=== PATIENT | male | born 1990 | race Caucasian/White ===

== ENCOUNTER 2021-05-17 14:25 | Emergency (ER) | payer MEDICAID, SELFPAY ==
--- NOTE | ~2021-05-17 | US_ITS ---
EXAMINATION: ULTRASOUND EXTREMITY NONVASCULAR CLINICAL INFORMATION: Question of foreign body in the hand. COMPARISON: None TECHNIQUE: Targeted sonographic evaluation in the region of concern of the left hand fifth digit. FINDINGS: There is no focal abnormality identified. No foreign body seen. US/US extremity nonvascular IMPRESSION: No foreign body identified in the region of concern.
--- NOTE | ~2021-05-17 | XR_ITS ---
EXAMINATION: LEFT HAND CLINICAL INFORMATION: Rule out foreign body. Laceration with glass. COMPARISON: None TECHNIQUE: 3 views of the left hand as well as navicular view of the wrist FINDINGS: There is no evidence of acute fracture or dislocation of the left hand. There is a large amount of soft tissue swelling seen about the dorsal ulnar aspect of the metacarpals no bony erosion identified. No gas within the soft tissues. No radiopaque foreign body. There appears to be a small soft tissue defect about the dorsal ulnar aspect of the fifth metacarpal phalangeal joint which may represent a laceration. Joint spaces maintained. XR/XR hand wrist LT IMPRESSION: No radiopaque foreign body identified. Large amount of soft tissue swelling.
[2021-05-17 14:38] VITALS: BP 127/77; PULSE 102; RESP 17; TEMP 36.8; O2SAT 98; BMI 18.6
[2021-05-17] MEDS: Ibuprofen 600 MG TABLET PO (14:45)
[2021-05-17 16:33] VITALS: BP 126/98; PULSE 120; RESP 18; TEMP 36.7; O2SAT 99
[2021-05-17] MEDS: oxyCODONE HCl Immed Release 5 MG TABLET PO (16:38)
[2021-05-17] MEDS: LORazepam 1 MG TABLET PO (16:38)
[2021-05-17] MEDS: Diphth,Pertus(ACell),Tet Adult 0.5 ML SYRINGE IM (16:39)
[2021-05-17] MEDS: 0.9 % Sodium Chloride 1,000 ML 999 ML IVCONT (17:03)
[2021-05-17 17:08] LABS: MANUAL DIFF FLAG NO
[2021-05-17 17:16] LABS: INTERNATIONAL NORM RATIO 1.1 (0.9-1.1); Prothrombin Time 12.2 SEC (9.9-13.0)
[2021-05-17 17:21] LABS: Basophils Percent Auto 0.4 % (0-2); Eosinophils Absolute Auto 0.1 X10*3/uL (0.0-0.4); Eosinophils Percent Auto 1.1 % (0-4); Hematocrit 45.3 % (42.0-52.0); Hemoglobin 15.5 g/dl (14.0-18.0); Imm Gran Abs Auto 0.02 X10*3/uL (0.00-0.03); Imm Gran Pct Auto 0.3 % (0.0-0.4); Lymphocytes Absolute Auto 1.5 X10*3/uL (1.2-4.9); Lymphocytes Percent Auto 20.7 % (20-40); Mean Corpuscular HGB Conc 34.2 g/dl (31.0-36.0); Mean Corpuscular Hemoglobin 32.4 pg (27.0-33.0); Mean Corpuscular Volume 94.6 fL (80.0-98.0); Mean Platelet Volume 8.8 fL (9.4-12.4); Monocytes Absolute Auto 0.6 X10*3/uL (0.1-1.2); Monocytes Percent Auto 8.9 % (2-11); Neutrophils Absolute Auto 4.9 x10*3/uL (2.0-8.3); Neutrophils Percent Auto 68.6 % (45-73); Platelet Count 325 X10*3/uL (160-400); Red Blood Count 4.79 X10*6/uL (4.60-5.80); Red Cell Distribution Width 12.2 % (11.0-16.0); White Blood Count 7.1 X10*3/uL (4.8-10.8)
--- NOTE | 2021-05-17 17:24 | PC.NURSE ---
US PERFORMED AT BEDSIDE
[2021-05-17 17:33] LABS: COVID-19 Test Negative (Negative)
--- NOTE | 2021-05-17 17:33 | ED.WOUNDLAC ---
HPI - Wound/Laceration General Chief Complaint: Wound/Laceration Stated Complaint: laceration on left hand Time Seen by Provider: 05/17/21 15:25 Source: patient and family (Mother) Mode of arrival: ambulatory Limitations: no limitations History of Present Illness HPI narrative: 31-year-old male presenting to the ED with complaints of a laceration to his left hand that occurred approximately 1 week ago while he was in the shower he sustained a laceration with the glass shower door. He reports that since then the pain/swelling/redness has increased and he is unsure if he has a foreign body in there. He reports that he is not sure if he is up-to-date on tetanus. He denies any fevers, chills, paresthesias, numbness/tingling, chest pain or shortness of breath, dyspnea on exertion, orthopnea, palpitations or any other symptoms complaints or concerns at this time. Denies any SI/HI/auditory visual hallucinations or thoughts of self-injury. Reports that this was accidental. Onset (ago): week(s) (1) Extremity Location: left: hand Place: home Patient tetanus UTD: No Context: accidental Associated symptoms: pain, suspect foreign body present and unable to move injured part Related Data Previous Rx's Medication Instructions Recorded cephalexin 500 mg capsule 500 mg PO Q6H 10 Days #40 cap 05/17/21 doxycycline monohydrate 100 mg 100 mg PO BID 10 Days #20 cap 05/17/21 capsule ibuprofen 800 mg tablet 800 mg PO Q8H PRN #14 tab 05/17/21 oxycodone 5 mg tablet 5 mg PO Q6H PRN #14 tab 05/17/21 Allergies Allergy/AdvReac Type Severity Reaction Status Date / Time Sulfa (Sulfonamide Allergy Unknown HIVES Verified 05/17/21 14:38 Antibiotics) [SULFA (SULFONAMIDE ANTIBIOTICS)] Review of Systems Review of Systems: Constitutional : No Fever, No Chills, Cardiovascular : No Chest Pain, No SOB Respiratory : No Dyspnea Gastrointestinal : No abdominal pain Musculoskeletal : No Joint Swelling Skin : + skin laceration, + possibly Foreign bodies, + surrounding erythema, No rash Neuro : No Weakness, No Numbness/tingling Psych : No SI/HI/thoughts of self injury Yes all other systems are reviewed and are negative PMFSH Past Medical History Attestation statement: The following information was validated with the patient. Medical History (Updated 05/17/21 @ 17:46 by MUSHTAQ Shankar) ADHD Anxiety Depression HIV disease Panic attacks Social History Social History Advance Directives: No Advance Directives Information Provided: No Physical Exam Vital Signs: Vital Signs: Last Vital Signs Temp 98.0 F 05/17/21 16:33 Pulse 120 H 05/17/21 16:33 Resp 18 05/17/21 16:33 BP 126/98 H 05/17/21 16:33 Pulse Ox 99 05/17/21 16:33 Body Mass Index 18.6 vital signs have been reviewed as normal and appeared to be correct. Blood pressure normal Heart rate normal. Respiration rate normal. Temperature normal. Oxygen saturation normal. Appearance: Alert. Oriented X3. No acute distress. Head: Normal external exam. Normocephalic. Atraumatic. Eyes: PERRLA. EOMI. Conjunctiva and sclera normal. Eyelids normal. ENT: Pharynx normal. Uvula midline. Moist mucous membranes. Neck: Normal inspection. Neck supple. FROM. CVS: Normal heart rate and rhythm. Respiratory: No respiratory distress. Painless inspiration. Skin: Skin warm and dry. Normal skin color. Normal skin turgor. To the left hand dorsal aspect at the 5th metacarpal dorsal aspect patient what appears like a puncture wound with moderate surrounding erythema and soft tissue swelling and tenderness palpation. He is unable to completely flex the 5th digit due to pain on the dorsal aspect although he does not have any pain on the palmar aspect and is not consistent with tenosynovitis. He has full range of motion of all other fingers. He keeps his left 5th digit in a flexion due to pain on the dorsal aspect no pain on the palmar aspect. Otherwise No additional rashes/lesions/lacerations noted. Extremities: Otherwise all other Extremities exhibit normal range of motion and nontender. Neuro: Oriented X 3. No motor deficit. No sensory deficit. Reflexes normal. Normal steady gait. No focal neuro deficits noted. Vascular: + radial pulses/+ 2 distal pedal pulses/+2 dorsalis pedis b/l. Normal cap refill. No cyanosis noted to upper extremity nails and lower extremity toes nails. Course Course Course Narrative: 16:20pm - 31-year-old male presenting to the ED with complaints of a laceration to his left hand that occurred approximately 1 week ago while he was in the shower he sustained a laceration with the glass shower door. He reports that since then the pain/swelling/redness has increased and he is unsure if he has a foreign body in there. He reports that he is not sure if he is up-to-date on tetanus. He denies any fevers, chills, paresthesias, numbness/tingling, chest pain or shortness of breath, dyspnea on exertion, orthopnea, palpitations or any other symptoms complaints or concerns at this time. Denies any SI/HI/auditory visual hallucinations or thoughts of self-injury. Reports that this was accidental. On exam patient To the left hand dorsal aspect at the 5th metacarpal dorsal aspect patient what appears like a puncture wound with moderate surrounding erythema and soft tissue swelling and tenderness palpation. He is unable to completely flex the 5th digit due to pain on the dorsal aspect although he does not have any pain on the palmar aspect and is not consistent with tenosynovitis. He has full range of motion of all other fingers. He keeps his left 5th digit in a flexion due to pain on the dorsal aspect no pain on the palmar aspect. Therefore I consulted with orthopedic hand surgeon Dr. Bosch and she reviewed the patient's x-ray report and recommended an ultrasound to evaluate for possible foreign bodies if they could not see on the x-ray along with a dose of IV antibiotic she also recommended admission although patient is very adamant that he cannot be admitted because he has to take care of his dog his mother tried to convince him that she can take care of the dog with the patient is having an anxiety/panic attack and almost crying reporting that he cannot stay here he needs to go home to take care of his dog he does not want his mother anyone else in care of his dog. Therefore explained to him that we should at least do the ultrasound the blood work and give him at least 1 dose of IV antibiotics and that he would need to leave against medical advice although I will give him doxycycline and Keflex for 14 days along with symptomatic treatment and instructions to follow-up with Dr. Bosch the hand surgeon and he understands and is agreeable to this plan. MDM - Wound/Laceration Medical Records Attestation: I reviewed the patient's medical records. Lab Data Result diagrams: 05/17/21 16:58 05/17/21 16:58 Labs: Lab Results 05/17/21 05/17/21 05/17/21 Range/Units 16:57 16:58 16:58 WBC 7.1 (4.8-10.8) X10*3/uL RBC 4.79 (4.60-5.80) X10*6/uL Hgb 15.5 (14.0-18.0) g/dl Hct 45.3 (42.0-52.0) % MCV 94.6 (80.0-98.0) fL MCH 32.4 (27.0-33.0) pg MCHC 34.2 (31.0-36.0) g/dl RDW 12.2 (11.0-16.0) % Plt Count 325 (160-400) X10*3/uL MPV 8.8 L (9.4-12.4) fL Immature Gran % (Auto) 0.3 (0.0-0.4) % Neut % (Auto) 68.6 (45-73) % Lymph % (Auto) 20.7 (20-40) % [place] % (Auto) 8.9 (2-11) % Eos % (Auto) 1.1 (0-4) % Baso % (Auto) 0.4 (0-2) % Lymph # (Auto) 1.5 (1.2-4.9) X10*3/uL [place] # (Auto) 0.6 (0.1-1.2) X10*3/uL Eos # (Auto) 0.1 (0.0-0.4) X10*3/uL Baso # (Auto) 0.0 (0.0-0.2) X10*3/uL Abs Immat Gran (auto) 0.02 (0.00-0.03) X10*3/uL Absolute Neuts (auto) 4.9 (2.0-8.3) x10*3/uL Absolute Nucleated RBC 0.000 (0.0-0.012) X10*3/uL Nucleated RBC % (auto) 0.0 (0.0-0.2) /100WBC PT 12.2 (9.9-13.0) SEC INR 1.1 (0.9-1.1) Lactic Acid 1.0 (0.5-2.0) mmol/L Imaging Data Extremity ultrasound: Attestation: I personally reviewed and interpreted this imaging study as follows: Radiologist's impression: FINDINGS: There is no focal abnormality identified. No foreign body seen.? US/US extremity nonvascular IMPRESSION: No foreign body identified in the region of concern.? Left hand/wrist x-ray: Attestation: I personally reviewed and interpreted this imaging study as follows: Radiologist's impression: FINDINGS: There is no evidence of acute fracture or dislocation of the left hand. There is a large amount of soft tissue swelling seen about the dorsal ulnar aspect of the metacarpals no bony erosion identified. No gas within the soft tissues. No radiopaque foreign body. There appears to be a small soft tissue defect about the dorsal ulnar aspect of the fifth metacarpal phalangeal joint which may represent a laceration. Joint spaces maintained. XR/XR hand wrist LT IMPRESSION: No radiopaque foreign body identified. ? Large amount of soft tissue swelling.? Critical Care Time Critical Care Time Critical Care Time: Yes Total Critical Care Time: 60 Attestation: I personally attest to this time spent taking care of the patient Discharge Plan Discharge Clinical Impression: Laceration, Cellulitis, Left against medical advice Patient Disposition: Left Against Medical Advice Instructions: Cellulitis (ED), Laceration Without Closure (ED), Warm Compress or Soak (ED), Against Medical Advice (ED) Prescriptions: New cephalexin 500 mg capsule 500 mg PO Q6H 10 Days Qty: 40 RF: 0 doxycycline monohydrate 100 mg capsule 100 mg PO BID 10 Days Qty: 20 RF: 0 oxycodone 5 mg tablet 5 mg PO Q6H PRN (Reason: pain) Qty: 14 RF: 0 ibuprofen 800 mg tablet 800 mg PO Q8H PRN (Reason: pain) Qty: 14 RF: 0 Referrals: Cindy Thomas MD [Physician] - 05/20/21 (Call Thursday to make an appointment next week) Stand Alone Forms: Work/School Release Print Language: Spanish
[2021-05-17 17:38] LABS: Alanine Aminotransferase 18 U/L (0-40); Albumin Level 4.6 g/dL (3.5-5.0); Alkaline Phosphatase 68 U/L (39-117); Anion Gap 15 (12-20); Aspartate Amino Transferase 15 U/L (5-37); Bilirubin Total 0.5 mg/dL (0.0-1.0); Blood Urea Nitrogen 13 mg/dL (9-16); C Reactive Protein 0.37 mg/dL (< or = 0.50); Calcium 9.6 mg/dL (8.4-10.2); Carbon Dioxide 24 mmol/L (22-29); Chloride 104 mmol/L (96-108); Creatinine Clr Calc Pharmacy 92.4; Estimated Glomerular Filt Rate > 60; Glucose Random 95 mg/dL (60-115); Potassium 3.7 mmol/L (3.3-5.1); Sodium 139 mmol/L (135-145); Total Protein 7.8 g/dL (6.5-8.0)
--- NOTE | 2021-05-17 18:03 | PC.NURSE ---
PT UNABLE TO GET COVERAGE TO WATCH ANIMAL AT HOME AND WILL NOT STAY AND IS LEAVING AMA MUSHTAQ CHAVIRA AWARE AND SPOKE WITH PT AND SPOKE WITH ORTHO PT WILL GO HOME ON ANTIBIOTIC THERAPY AND F/U ON THURSDAY WITH ORTHO.
[2021-05-17 18:24] LABS: Erythrocyte Sedimentation Rate 9 MM/HR (0-15)
== END 2021-05-17 18:07 | disposition left against medical advice (07) ==
PROVIDERS: Physician Assistant Medical; Emergency Provider Emergency Medicine Emergency Medical Services
DX: S61.412A Laceration without foreign body of left hand, initial encounter (principal); L03.114 Cellulitis of left upper limb; B20 Human immunodeficiency virus [HIV] disease; W25.XXXA Contact with sharp glass, initial encounter; Y93.E1 Activity, personal bathing and showering; Y92.002 Bathroom of unspecified non-institutional (private) residence as the place of occurrence of the external cause; Y99.9 Unspecified external cause status; Z20.822 Contact with and (suspected) exposure to COVID-19
CPT/HCPCS: 36415; 73110; 73130; 76882; 80053; 83605; 85025; 85610; 85652; 86140; 87040; 87635; 90471; 90715; 96360; 99284; 99291

== ENCOUNTER 2021-05-28 09:26 | Outpatient (REF) | payer MEDICAID, SELFPAY ==
--- NOTE | ~2021-05-28 | XR_ITS ---
EXAMINATION: XR HAND, LEFT CLINICAL INFORMATION: Left hand pain. COMPARISON: 05/17/2021 TECHNIQUE: PA, lateral, and oblique views of the left hand. FINDINGS: There is mild soft tissue swelling at the dorsal/medial aspect of the left hand. No fracture or malalignment. Bone mineralization is normal. No radiodense foreign bodies. Joint spaces are well preserved. No erosions. XR/XR hand LT min 3V IMPRESSION: Mild soft tissue swelling at the medial/dorsal aspect of the hand. No acute osseous findings. No radiodense foreign bodies.
== END 2021-05-28 09:27 | disposition home or self-care (01) ==
LOC: HO.HOSX 09:26
PROVIDERS: Visit Provider Orthopaedic Surgery
DX: M79.642 Pain in left hand (principal); S61.412A Laceration without foreign body of left hand, initial encounter; S66.822A Laceration of other specified muscles, fascia and tendons at wrist and hand level, left hand, initial encounter
CPT/HCPCS: 73130; 99202

== ENCOUNTER → 2021-06-12 12:12 | Outpatient (BNVA) | payer MEDICAID, SELFPAY | PROVIDERS: Visit Provider Orthopaedic Surgery | DX: S61.412D Laceration without foreign body of left hand, subsequent encounter (principal); S66.822D Laceration of other specified muscles, fascia and tendons at wrist and hand level, left hand, subsequent encounter; M25.642 Stiffness of left hand, not elsewhere classified | CPT/HCPCS: 99212 ==

== ENCOUNTER 2024-05-21 03:45 | Inpatient (IN) | payer MEDICAID, SELFPAY ==
[2024-05-21] VITALS (7 sets, daily range): BP systolic 113–139; BP diastolic 74–96; PULSE 57–82; RESP 15–20; TEMP 36.6–37.1; O2SAT 94–99; BMI 18.6
--- NOTE | ~2024-05-21 | CT_ITS ---
EXAMINATION: CT ABDOMEN AND PELVIS WITH CONTRAST CLINICAL INFORMATION: Abdominal pain. Leukocytosis. COMPARISON: None available. TECHNIQUE: Multidetector volumetric images were obtained from the superior aspect of the liver through the pubic symphysis following administration 85 mL of Omnipaque 350 intravenous contrast. Sagittal and coronal reformatted images were obtained on the technologist's workstation. Oral contrast: No This CT examination was performed using dose optimization techniques as appropriate, variously including the following: *Automated exposure control *Adjustment of mA and/or kV according to patient size (this includes techniques or standardized protocols for targeted exams where dose is matched to indication/reason for exam; i.e. extremities or head) *Use of iterative reconstruction technique DLP: 334 mGy-cm FINDINGS: LUNG BASES: The visualized lung bases are unremarkable. LIVER, GALLBLADDER, AND BILIARY TREE: The liver is normal in size, shape, and attenuation. No focal hepatic lesion or biliary ductal dilatation is present. Distended gallbladder with multiple layering stones and sludge. Gallbladder wall thickening and enhancement with pericholecystic free fluid. Findings are consistent with acute cholecystitis. PANCREAS: Unremarkable. SPLEEN: Unremarkable. ADRENAL GLANDS: Unremarkable. KIDNEYS AND URETERS: The kidneys are normal in size, shape, and attenuation. No hydronephrosis, hydroureter, or calculi seen. No perinephric stranding. BLADDER: Unremarkable. GASTROINTESTINAL TRACT: No small- or large-bowel obstruction. Moderate stool within the colon. No bowel wall thickening or inflammatory change. Unremarkable appendix. PERITONEAL CAVITY: No intra-abdominal free air or free fluid. ABDOMINAL WALL: No significant hernia is appreciated. LYMPH NODES: No significant lymphadenopathy. VASCULAR: Unremarkable. PELVIC VISCERA: The prostate and seminal vesicles are unremarkable. OSSEOUS STRUCTURES: Unremarkable. CT/CT abdomen pelvis w IV con IMPRESSION: 1. Distended gallbladder with multiple layering stones and sludge. Gallbladder wall thickening and enhancement with pericholecystic free fluid. Findings are consistent with acute cholecystitis. 2. Moderate stool throughout the colon, which could indicate a degree of constipation. No small- or large-bowel obstruction. No bowel wall thickening or inflammatory change. Unremarkable appendix. 3. No intra-abdominal mass, lymphadenopathy, or ascites. Fleischner guidelines were followed. Electronically signed by: Alex Ren MD 05/21/2024 08:48 AM [facility] [place]
[2024-05-21 04:17] LABS: MANUAL DIFF FLAG NO
[2024-05-21 04:18] LABS: Basophils Percent Auto 0.2 % (0-2); Eosinophils Absolute Auto 0.1 X10*3/uL (0.0-0.4); Eosinophils Percent Auto 0.4 % (0-4); Hematocrit 38.9 % (42.0-52.0); Hemoglobin 13.2 g/dl (14.0-18.0); Imm Gran Abs Auto 0.07 X10*3/uL (0.00-0.03); Imm Gran Pct Auto 0.4 % (0.0-0.4); Lymphocytes Percent Auto 11.8 % (20-40); Mean Corpuscular HGB Conc 33.9 g/dl (31.0-36.0); Mean Corpuscular Volume 94.4 fL (80.0-98.0); Mean Platelet Volume 8.9 fL (9.4-12.4); Monocytes Percent Auto 5.8 % (2-11); Neutrophils Absolute Auto 13.6 x10*3/uL (2.0-8.3); Neutrophils Percent Auto 81.4 % (45-73); Platelet Count 321 X10*3/uL (160-400); Red Blood Count 4.12 X10*6/uL (4.60-5.80); Red Cell Distribution Width 14.6 % (11.0-16.0); White Blood Count 16.7 X10*3/uL (4.8-10.8)
[2024-05-21 04:36] LABS: Alanine Aminotransferase 17 U/L (0-40); Albumin Level 4.2 g/dL (3.5-5.0); Alkaline Phosphatase 55 U/L (39-117); Anion Gap 14 (12-20); Aspartate Amino Transferase 19 U/L (5-37); Bilirubin Direct 0.1 mg/dL (0.0-0.5); Bilirubin Total 0.5 mg/dL (0.0-1.0); Blood Urea Nitrogen 9 mg/dL (9-16); Calcium 9.5 mg/dL (8.4-10.2); Carbon Dioxide 25 mmol/L (22-29); Chloride 103 mmol/L (96-108); Creatinine Clr Calc Pharmacy 98.8; Estimated Glomerular Filt Rate > 60; Glucose Random 108 mg/dL (60-115); Lipase 13 U/L (8-78); Potassium 3.6 mmol/L (3.3-5.1); Sodium 138 mmol/L (135-145); Total Protein 7.5 g/dL (6.5-8.0)
[2024-05-21 06:06] LABS: Appearance Urine Clear; Color Urine Yellow; Glucose Urine UA Negative (Negative); Leukocyte Esterase Urine Negative (Negative); Nitrite Urine Negative (Negative); PH 6.5 (5.0-9.0); Urine Blood Negative (Negative); Urine Ketones Negative (Negative); Urine Protein Negative (Neg-Trace)
--- NOTE | 2024-05-21 07:05 | ED_ITS ---
HPI - General Adult General Chief complaint: Abdominal Pain Stated complaint: upper abd pain Time Seen by Provider: 05/21/24 06:44 Source: patient Mode of arrival: ambulatory Limitations: no limitations History of Present Illness ED Provider: MUSHTAQ Llamas HPI narrative: A 34-year-old male history of anxiety, depression, HIV on maintenance meds ( unknown last CD4) presenting to the emergency department with complaints of epigastric and right upper quadrant abdominal pain ongoing for the past few days, it got worse yesterday night at approximately 22:00 this is the last time she ate. He reports pain is constant and severe. He denies history of abdominal surgeries. He has no appetite. Nothing seems to make this pain better. Denies fevers, chills, nausea, vomiting, diarrhea, chest pain, shortness of breath. Related Data Previous Rx's ?Medication ?Instructions ?Recorded cephalexin 500 mg capsule 500 mg PO Q6H 10 days #40 caps 05/17/21 doxycycline monohydrate 100 mg 100 mg PO BID 10 days #20 caps 05/17/21 capsule ibuprofen 800 mg tablet 800 mg PO Q8H PRN pain #14 tabs 05/17/21 oxycodone 5 mg tablet 5 mg PO Q6H PRN pain #14 tabs 05/17/21 Allergies Allergy/AdvReac Type Severity Reaction Status Date / Time Sulfa (Sulfonamide Allergy Unknown HIVES Verified 05/21/24 03:54 Antibiotics) [SULFA (SULFONAMIDE ANTIBIOTICS)] Review of Systems 2 Review of Systems: Yes all other systems are reviewed and are negative PMFSH Past Medical History Attestation statement: The following information was validated with the patient. Source: old records reviewed and nursing notes reviewed Medical History Depression ADHD HIV disease Panic attacks Anxiety Social History Social History Alcohol intake: current Alcohol intake frequency: holidays/special occasions only Smoked in Last 30 Days: Yes Use of substances other than those prescribed or required for medical reasons: Yes Substance Use Type: Marijuana Substance Use Frequency: Occasionally Advance Directives: No Advance Directives Information Provided: Yes Do you have a plan to hurt others: No Plan Current occupational status: unemployed Current occupation: rt hand Physical Exam ED Vital Signs: Vital Signs - 24 hr 05/21/24 03:52 05/21/24 05:56 05/21/24 07:33 Temperature 98 F 98.7 F 98.4 F Pulse Rate 82 68 74 Respiratory Rate 20 18 15 Blood Pressure 139/96 H 125/81 122/74 Pulse Oximetry 97 99 94 Oxygen Delivery Method Room Air Room Air Room Air BMI result Body Mass Index 18.6 vss Appearance: Alert.? Oriented X3.? No acute distress.? Head: Normocephalic, atraumatic, no step-offs or deformities Eyes: Pupils equal, round and reactive to light.?? Neck: Normal inspection.? Neck supple.? CVS: Normal heart rate and rhythm.? Pulses normal.? Respiratory: No respiratory distress.? Breath sounds normal.? Abdomen: Soft and Epigastric and RUQ pain .?+ murphys Skin: Skin warm and dry.? Normal skin color.? Normal skin turgor.? Extremities: No lower extremity edema.? No calf ttp. 5/5 strength to bilateral upper and lower extremities Neuro: Oriented X 3.? No motor deficit.? No sensory deficit. CN 2-12 intact Course Reevaluation(s) Reevaluation #1: Patient's CBC with leukocytosis and left shift this could be reactive or from viral illness. Chemistry with no acute findings needing intervention. Time: 07:30 Reevaluation #2: Patient's CT scan showing distended gallbladder with multiple layering stones and sludge gallbladder wall thickening and enhancement with pericholecystic free fluid consistent with acute cholecystitis. Will reach out to surgery as patient will likely need laparoscopic cholecystectomy. Time: 09:01 Medications Administered Discontinued Medications Generic Name Dose Route Start Last Admin Trade Name Lucasq PRN Reason Stop Dose Admin Iohexol 100 ml 05/21/24 07:59 05/21/24 07:59 Iohexol 350 Mg/Ml 100 Ml Infus..Btl IV 05/21/24 08:00 85 ml ONCE ONE Administration Ketorolac Tromethamine 15 mg 05/21/24 07:05 05/21/24 08:00 Ketorolac Tromethamine 15 Mg/Ml Vial IVPUSH 05/21/24 07:06 15 mg ONCE ONE Administration Medical Decision Making Medical Decision Making [facility] Narrative: [id number] 34-year-old male presents with epigastric/right upper quadrant pain ongoing for the past few days acutely worsening last night. No appetite. Physical exam significant discomfort in the epigastric and the right upper quadrant. Positive Wong sign. Negative McBurney's. History and physical exam concerning for viral illness versus cholecystitis versus appendicitis. Unlikely acute abdomen, obstruction, kidney stone. Will rule out metabolic derangements Plan labs, imaging, urine Differential Diagnosis Differential Diagnoses: The differential diagnosis associated with the presentation includes (story and physical exam concerning for viral illness versus cholecystitis versus appendicitis. Unlikely acute abdomen, obstruction, kidney stone. Will rule out metabolic derangements) Admission/Observation Consideration of admission/observation: Escalation of care including admission/observation considered Lab Data MDM Lab Attestation statement: I reviewed the patient's lab results. 05/21/24 04:13 05/21/24 04:13 Labs: Lab Results 05/21/24 05/21/24 Range/Units 04:13 05:59 WBC 16.7 H (4.8-10.8) X10*3/uL RBC 4.12 L (4.60-5.80) X10*6/uL Hgb 13.2 L (14.0-18.0) g/dl Hct 38.9 L (42.0-52.0) % MCV 94.4 (80.0-98.0) fL MCH 32.0 (27.0-33.0) pg MCHC 33.9 (31.0-36.0) g/dl RDW 14.6 (11.0-16.0) % Plt Count 321 (160-400) X10*3/uL MPV 8.9 L (9.4-12.4) fL Immature Gran % (Auto) 0.4 (0.0-0.4) % Neut % (Auto) 81.4 H (45-73) % Lymph % (Auto) 11.8 L (20-40) % [place] % (Auto) 5.8 (2-11) % Eos % (Auto) 0.4 (0-4) % Baso % (Auto) 0.2 (0-2) % Lymph # (Auto) 2.0 (1.2-4.9) X10*3/uL [place] # (Auto) 1.0 (0.1-1.2) X10*3/uL Eos # (Auto) 0.1 (0.0-0.4) X10*3/uL Baso # (Auto) 0.0 (0.0-0.2) X10*3/uL Abs Immat Gran (auto) 0.07 H (0.00-0.03) X10*3/uL Absolute Neuts (auto) 13.6 H (2.0-8.3) x10*3/uL Absolute Nucleated RBC 0.000 (0.0-0.012) X10*3/uL Nucleated RBC % (auto) 0.0 (0.0-0.2) /100WBC Sodium 138 (135-145) mmol/L Potassium 3.6 (3.3-5.1) mmol/L Chloride 103 (96-108) mmol/L Carbon Dioxide 25 (22-29) mmol/L Anion Gap 14 (12-20) BUN 9 (9-16) mg/dL Creatinine 0.71 (0.5-1.4) mg/dL Estim Creat Clear Calc 98.8 Estimated GFR > 60 Random Glucose 108 (60-115) mg/dL Calcium 9.5 (8.4-10.2) mg/dL Total Bilirubin 0.5 (0.0-1.0) mg/dL Direct Bilirubin 0.1 (0.0-0.5) mg/dL AST 19 (5-37) U/L ALT 17 (0-40) U/L Alkaline Phosphatase 55 (39-117) U/L Total Protein 7.5 (6.5-8.0) g/dL Albumin 4.2 (3.5-5.0) g/dL Lipase 13 (8-78) U/L Urine Color Yellow Urine Appearance Clear Urine pH 6.5 (5.0-9.0) Ur Specific [place] 1.010 (1.005-1.025) Urine Protein Negative (Neg-Trace) mg/dL Urine Glucose (UA) Negative (Negative) mg/dL Urine Ketones Negative (Negative) mg/dL Urine Blood Negative (Negative) Urine Nitrite Negative (Negative) Ur Leukocyte Esterase Negative (Negative) Independent Interpretation I performed an independent interpretation of an: CT Scan Radiology Impression Discussion of test interpretation with radiology: I have reviewed the radiologist's reading. Chronic Conditions Patient?s care impacted by: Other (anxiety, depression, hiv) Critical Care Time Critical Care Time Critical Care Time: Yes Total Critical Care Time: 35 Attestation: I attest to this time spent taking care of the patient, obtaining history, physical, reviewing labs, imaging, treatment of patients condition +/- specialist/hospitalist consult Discharge Plan Discharge Clinical Impression: Acute cholecystitis Patient Disposition: Admitted As Inpatient Prescriptions: No Action cephalexin 500 mg capsule 500 mg PO Q6H 10 Days Qty: 40 0RF doxycycline monohydrate 100 mg capsule 100 mg PO BID 10 Days Qty: 20 0RF oxycodone 5 mg tablet 5 mg PO Q6H PRN (Reason: pain) Qty: 14 0RF ibuprofen 800 mg tablet 800 mg PO Q8H PRN (Reason: pain) Qty: 14 0RF Print Language: Bulgarian
[2024-05-21] MEDS: iohexoL 350 MG/ML 100 ML INFUS..BTL IV (07:59)
[2024-05-21] MEDS: Ketorolac Tromethamine 15 MG/ML VIAL IVPUSH (08:00)
[2024-05-21] MEDS: cefTRIAXone sodium 1 GM VIAL IVPUSH (09:40)
[2024-05-21 09:59] LABS: Lactic Acid 1.5 mmol/L (0.5-2.0)
--- NOTE | 2024-05-21 10:47 | PM.HPGS ---
History of Present Illness History of Present Illness Date of Service: 05/24/24 Chief complaint: acute cholecystitis Narrative: Josef Fam is a 34 year old male known HIV infection, here in the ER because of abdominal pain. He says that this is mostly in the epigastric area and maybe on the right upper quadrant. He says that this started 3 morning. This had persisted throughout the day so he went to the emergency room last night. He did state that he was waiting in the emergency room waiting room for a long time. He denies any nausea or vomiting He says his pain is ?gone? at this time but did get a dose of Toradol earlier here in the ER. He has a history of anxiety and depression as well and used to see a psychiatrist in the past. He seems to have had uncertain follow up with his IV doctor with regards to treatment. Review of Systems Review of Systems: Very anxious Constitutional: Constitutional: Denies chills and Denies fever(s) Cardiovascular: Cardiovascular: Denies chest pain, Denies dyspnea and Denies dyspnea on exertion Respiratory: Respiratory: Denies cough, Denies dyspnea and Denies dyspnea on exertion Gastrointestinal: Gastrointestinal: Denies hematochezia and Denies change in bowel habits Genitourinary: Genitourinary: Denies hematuria and Denies difficulty urinating Musculoskeletal: Musculoskeletal: Denies back pain and Denies limited range of motion Neurologic: Denies focal weakness and Denies convulsions Psychiatric: Psychiatric: Denies depression and Denies mood swings PMFSH Past Medical History Medical History Depression ADHD HIV disease Panic attacks Anxiety Social History Social History Alcohol intake: current Alcohol intake frequency: holidays/special occasions only Smoked in Last 30 Days: Yes Use of substances other than those prescribed or required for medical reasons: Yes Substance Use Type: Marijuana Substance Use Frequency: Occasionally Advance Directives: No Advance Directives Information Provided: Yes Do you have a plan to hurt others: No Plan Current occupational status: unemployed Current occupation: rt hand Meds Allergies Allergy/AdvReac Type Severity Reaction Status Date / Time Sulfa (Sulfonamide Allergy Unknown HIVES Verified 05/21/24 03:54 Antibiotics) [SULFA (SULFONAMIDE ANTIBIOTICS)] Home Medications ?Medication ?Instructions ?Recorded ?Confirmed ?Last Taken ?Type bictegravir 50 mg-emtricitabine 1 tab PO DAILY 05/21/24 Unknown History 200 mg-tenofovir alafenam 25 mg tablet (Biktarvy) Physical Exam Vital Signs: Vital Signs: Last Vital Signs Temp 98.4 F 05/21/24 07:33 Pulse 57 05/21/24 09:44 Resp 16 05/21/24 09:44 BP 115/80 05/21/24 09:44 Pulse Ox 95 05/21/24 09:44 O2 Del Method Room Air 05/21/24 07:33 BMI result Body Mass Index 18.6 Const: General: comfortable and no acute distress Orientation/consciousness: patient oriented x3 Neck: Neck: Yes no lymphadenopathy Resp: Auscultation: clear to auscultation bilaterally Cardio: Rhythm: regular rhythm GI: Other: Currently no Wong's sign or tenderness Palpation (GI): Soft to palpation, nontender and no guarding Neuro: General: patient oriented x3 Results Results Labs: Short CBC 05/21/24 Range/Units 04:13 WBC 16.7 H (4.8-10.8) X10*3/uL Hgb 13.2 L (14.0-18.0) g/dl Hct 38.9 L (42.0-52.0) % Plt Count 321 (160-400) X10*3/uL BMP 05/21/24 04:13 Sodium 138 Potassium 3.6 Chloride 103 Carbon Dioxide 25 BUN 9 Creatinine 0.71 Calcium 9.5 Liver Function 05/21/24 Range/Units 04:13 Total Bilirubin 0.5 (0.0-1.0) mg/dL Direct Bilirubin 0.1 (0.0-0.5) mg/dL AST 19 (5-37) U/L ALT 17 (0-40) U/L Alkaline Phosphatase 55 (39-117) U/L Albumin 4.2 (3.5-5.0) g/dL Urine 05/21/24 Range/Units 05:59 Urine Color Yellow Urine Appearance Clear Urine pH 6.5 (5.0-9.0) Ur Specific [place] 1.010 (1.005-1.025) Urine Protein Negative (Neg-Trace) mg/dL Urine Glucose (UA) Negative (Negative) mg/dL Abdomen CT scan report/results: report reviewed and image reviewed CT scan - pelvis: report reviewed and image reviewed Additional studies: Laboratory Results WBC 16.7 X10*3/uL (4.8-10.8) H 05/21/24 04:13 RBC 4.12 X10*6/uL (4.60-5.80) L 05/21/24 04:13 Hgb 13.2 g/dl (14.0-18.0) L 05/21/24 04:13 Hct 38.9 % (42.0-52.0) L 05/21/24 04:13 MCV 94.4 fL (80.0-98.0) 05/21/24 04:13 MCH 32.0 pg (27.0-33.0) 05/21/24 04:13 MCHC 33.9 g/dl (31.0-36.0) 05/21/24 04:13 RDW 14.6 % (11.0-16.0) 05/21/24 04:13 Plt Count 321 X10*3/uL (160-400) 05/21/24 04:13 MPV 8.9 fL (9.4-12.4) L 05/21/24 04:13 Immature Gran % (Auto) 0.4 % (0.0-0.4) 05/21/24 04:13 Neut % (Auto) 81.4 % (45-73) H 05/21/24 04:13 Lymph % (Auto) 11.8 % (20-40) L 05/21/24 04:13 [place] % (Auto) 5.8 % (2-11) 05/21/24 04:13 Eos % (Auto) 0.4 % (0-4) 05/21/24 04:13 Baso % (Auto) 0.2 % (0-2) 05/21/24 04:13 Lymph # (Auto) 2.0 X10*3/uL (1.2-4.9) 05/21/24 04:13 [place] # (Auto) 1.0 X10*3/uL (0.1-1.2) 05/21/24 04:13 Eos # (Auto) 0.1 X10*3/uL (0.0-0.4) 05/21/24 04:13 Baso # (Auto) 0.0 X10*3/uL (0.0-0.2) 05/21/24 04:13 Abs Immat Gran (auto) 0.07 X10*3/uL (0.00-0.03) H 05/21/24 04:13 Absolute Neuts (auto) 13.6 x10*3/uL (2.0-8.3) H 05/21/24 04:13 Absolute Nucleated RBC 0.000 X10*3/uL (0.0-0.012) 05/21/24 04:13 Nucleated RBC % (auto) 0.0 /100WBC (0.0-0.2) 05/21/24 04:13 Sodium 138 mmol/L (135-145) 05/21/24 04:13 Potassium 3.6 mmol/L (3.3-5.1) 05/21/24 04:13 Chloride 103 mmol/L (96-108) 05/21/24 04:13 Carbon Dioxide 25 mmol/L (22-29) 05/21/24 04:13 Anion Gap 14 (12-20) 05/21/24 04:13 BUN 9 mg/dL (9-16) 05/21/24 04:13 Creatinine 0.71 mg/dL (0.5-1.4) 05/21/24 04:13 Estim Creat Clear Calc 98.8 05/21/24 04:13 Estimated GFR > 60 05/21/24 04:13 Random Glucose 108 mg/dL (60-115) 05/21/24 04:13 Lactic Acid 1.5 mmol/L (0.5-2.0) 05/21/24 09:34 Calcium 9.5 mg/dL (8.4-10.2) 05/21/24 04:13 Total Bilirubin 0.5 mg/dL (0.0-1.0) 05/21/24 04:13 Direct Bilirubin 0.1 mg/dL (0.0-0.5) 05/21/24 04:13 AST 19 U/L (5-37) 05/21/24 04:13 ALT 17 U/L (0-40) 05/21/24 04:13 Alkaline Phosphatase 55 U/L (39-117) 05/21/24 04:13 Total Protein 7.5 g/dL (6.5-8.0) 05/21/24 04:13 Albumin 4.2 g/dL (3.5-5.0) 05/21/24 04:13 Lipase 13 U/L (8-78) 05/21/24 04:13 Urine Color Yellow 05/21/24 05:59 Urine Appearance Clear 05/21/24 05:59 Urine pH 6.5 (5.0-9.0) 05/21/24 05:59 Ur Specific [place] 1.010 (1.005-1.025) 05/21/24 05:59 Urine Protein Negative mg/dL (Neg-Trace) 05/21/24 05:59 Urine Glucose (UA) Negative mg/dL (Negative) 05/21/24 05:59 Urine Ketones Negative mg/dL (Negative) 05/21/24 05:59 Urine Blood Negative (Negative) 05/21/24 05:59 Urine Nitrite Negative (Negative) 05/21/24 05:59 Ur Leukocyte Esterase Negative (Negative) 05/21/24 05:59 Impressions Abdomen/Pelvis CT 05/21/24 07:15 IMPRESSION: 1. Distended gallbladder with multiple layering stones and sludge. Gallbladder wall thickening and enhancement with pericholecystic free fluid. Findings are consistent with acute cholecystitis. 2. Moderate stool throughout the colon, which could indicate a degree of constipation. No small- or large-bowel obstruction. No bowel wall thickening or inflammatory change. Unremarkable appendix. 3. No intra-abdominal mass, lymphadenopathy, or ascites. Fleischner guidelines were followed. Electronically signed by: Alex Ren MD 05/21/2024 08:48 AM [facility] [place] Plan (1) Acute cholecystitis: Status: Acute He has had upper abdominal pain mostly in the epigastric area and right upper quadrant since yesterday. I have reviewed his CAT scan images. This is consistent with the acute cholecystitis with note of gallbladder wall thickening along with pericholecystic fluid I explained to him that in view of these findings, we can proceed with cholecystectomy a surgical treatment. I had a long discussion with him about the technique of laparoscopic cholecystectomy and possible open cholecystectomy. I reviewed the risks including but not limited to bleeding and infections, injury to other organs including bowel, liver and the bile duct, retained stones, bile leak, as well as the benefits and alternatives. I explained to him what to expect postoperatively He has severe anxiety and says he is mentally not ready to have surgery. He says that he wants to go home and says he takes care of a dog at home. I did tell him that if he has to leave this will be against medical advice as he has significant edema with the gallbladder wall. I told him that would recommend staying in the hospital at least for IV antibiotics if he is refusing surgery at this time. He says he feels much better and does not have any pain anymore and states that he is considering going home today His parents are at bedside who are convincing him to at least stay in the hospital and consider surgery I will admit him for IV antibiotics. I will monitor him and see if he decides to proceed with surgical option. Quality Stroke Does the patient have a stroke diagnosis?: No VTE Prior VTE?: No VTE Risk Level:: Medical - low VTE Device Contraindication: N/A - Device Ordered VTE Drug Contraindication: Treatment Not Indicated Procedures Date of Service Date of Service: 05/24/24
--- NOTE | 2024-05-21 11:45 | PC.NURSE ---
Pt scheduled for surgery today. Following consult with Dr. Matias Pt alerts this RN that he wishes to leave. He does not want surgery today and would like to return home. Pt educated on the risks of leaving the hospital without recommended treatments; Pt continues to request to leave. Dr. Matias alerted and he returns to bedside to consult with Pt. Pt will be leaving AMA, form signed.
--- NOTE | 2024-05-21 15:05 | P.DS_ITS ---
DS: Providers Provider Date of Service: 05/21/24 Date of admission: 05/21/24 11:03 Date of discharge: 05/21/24 Primary care physician: Unknown Physician Attending physician on admission: Watson Matias Attending physician on discharge: Watson Matias DS: Diagnosis Discharge Diagnosis (1) Acute cholecystitis: Status: Acute DS: Summary Hospital Course Hospital Course: HPI AT ADMISSION: Josef Fam is a 34 year old male known HIV infection, here in the ER because of abdominal pain. He says that this is mostly in the epigastric area and maybe on the right upper quadrant. He says that this started 3 morning. This had persisted throughout the day so he went to the emergency room last night. He did state that he was waiting in the emergency room waiting room for a long time. He denies any nausea or vomiting. He says his pain is ?gone? at this time but did get a dose of Toradol earlier here in the ER. He has a history of anxiety and depression as well and used to see a psychiatrist in the past. He seems to have had uncertain follow up with his IV doctor with regards to treatment. CT scan shows acute cholecystitis with note of gallbladder wall thickening along with pericholecystic fluid. HOSPITAL COURSE: He was admitted to the surgical service for further treatment of the acute cholecystitis. It was recommended to proceed with cholecystectomy as surgical treatment. He has severe anxiety and said he was mentally not ready to have surgery and actually wanted to leave the hospital. He was told he was leaving AMA. It was recommended to at least stay in the hospital at least for IV antibiotics if he is refusing surgery at this time. He was kept NPO on IV abx. He eventually left AMA later in the day. Time Attestation Discharge Coordination Time (in mins): 30 Quality: Safe Use of Opioids Does Pt have an Active Cancer Diagnosis on the Problem List?: No Quality: Stroke Does the patient have a stroke diagnosis?: No Physical Exam Vital Signs: Vital Signs: Last Vital Signs Temp 98.4 F 05/21/24 11:44 Pulse 69 05/21/24 11:44 Resp 16 05/21/24 11:44 BP 113/80 05/21/24 11:44 Pulse Ox 95 05/21/24 11:44 O2 Del Method Room Air 05/21/24 11:44 BMI result Body Mass Index 18.6 DS: Data Data Completed and Pending Labs on day of discharge: Preliminary micro results at discharge 05/21/24 09:34 Blood Culture - Preliminary Blood - Venous No growth after 48 hours. 05/21/24 09:38 Blood Culture - Preliminary Blood - Venous No growth after 48 hours. Discharge Plan Discharge Patient Disposition: Left Against Medical Advice Discharge Diagnosis: acute cholecystitis Referrals: Physician,Unknown J [Primary Care Provider] - 1 Week Discharge Medications: No Action amoxicillin-pot clavulanate 875-125 mg tablet 1 tab PO BID Qty: 14 0RF Biktarvy 50-200-25 mg tablet 1 tab PO DAILY Discharge Orders: Discharge Order (Routine); Ordered 05/24/24 Ordered By: Destiny Jiménez Stand Alone Forms: Against Medical Advice Print Language: Faroese Care Plan Goals: resolution of acute cholecystitis Health Concerns: acute cholecystitis Plan of Treatment: surgery was recommended Assessment: Left AMA Discharge Date/Time: 05/21/24 11:42
== END 2024-05-21 11:42 | disposition left against medical advice (07) ==
LOC: HO.ED 09:02 → HO.EDOVER 11:10
PROVIDERS: Physician Assistant; Admitting Provider Surgery; Emergency Provider Emergency Medicine; Visit Provider Surgery
DX: K81.0 Acute cholecystitis (principal); F41.9 Anxiety disorder, unspecified; Z21 Asymptomatic human immunodeficiency virus [HIV] infection status; Z79.899 Other long term (current) drug therapy
CPT/HCPCS: 36415; 74177; 80048; 80076; 81003; 83605; 83690; 85025; 87040; 99221; 99285; J0696; J1885; Q9967

== ENCOUNTER → 2024-05-21 11:03 | Outpatient (BNV) | payer MEDICAID, SELFPAY | PROVIDERS: Admitting Provider Surgery; Emergency Provider Emergency Medicine; Visit Provider Surgery | DX: K81.0 Acute cholecystitis (principal) | CPT/HCPCS: 99222; 99499 ==